=== PATIENT | female | born 1970 | race Caucasian/White ===

== ENCOUNTER 2018-08-08 11:15 | Emergency (ER) | payer OTHER ==
[2018-08-08 11:36] VITALS: BP 130/91
--- NOTE | 2018-08-08 11:50 | UC ---
Respiratory Complaint HPI - HPI Summary HPI Summary: 47 y/o female presents to the urgent care c/o sinus congestion w/ yellowish nasal discharge, body aches, PATRICIO since Wednesday08/05/2018. She states subjective denies fever, but had some chills last night. Body aches and PATRICIO is 8/10. Pt has taken Alkazeltser cold an flu to alleviate symptoms w/o any improvement. Last night she developed a productive cough that didn't allow her to sleep. PT denies SOB, wheezing, dizziness, abdominal pain, N/V/D. - History of Current Complaint Chief Complaint: UCRespiratory Stated Complaint: CONGESTION/COUGH Time Seen by Provider: 08/08/18 11:49 Hx Obtained From: Patient Hx Last Menstrual Period: 07/2018 ?: No Onset/Duration: Gradual Onset, Lasting Days - 3 ays, Still Present, Worse Since - todau Timing: Constant Severity Initially: Mild Severity Currently: Moderate Pain Intensity: 8 Pain Scale Used: 0-10 Numeric Character: Cough: Productive, Sputum Description: - yellowish Aggravating Factors: Recumbent Position Alleviating Factors: OTC Meds - alkazeltser cold and flu Associated Signs And Symptoms: Positive: Fever - subjective at home, Chills, URI , Nasal Congestion - Risk Factors Pulmonary Embolism Risk Factors: Negative Cardiac Risk Factors: Negative Pseudomonas Risk Factors: Negative Tuberculosis Risk Factors: Negative - Allergies/Home Medications Allergies/Adverse Reactions: Allergies Allergy/AdvReac Type Severity Reaction Status Date / Time No Known Allergies Allergy Verified 08/08/18 11:31 Home Medications: Home Medications Dm/PE/Acetaminophen/Chlorphenr [Gini-[place] Plus Cld-Cough Cp] 1 cap PO ONCE [History Confirmed 08/08/18] PMH/Surg Hx/FS Hx/Imm Hx Previously Healthy: Yes - Pt denies PMHX - Surgical History Surgical History: Yes Surgery Procedure, Year, and Place: Tubal Ligation, 2002, [facility] - Family History Known Family History: Positive: Hypertension - Social History Occupation: Employed Full-time Lives: With Family Alcohol Use: None Substance Use Type: None Smoking Status (MU): Former Smoker Type: Cigarettes Amount Used/How Often: 1/2 PPD Length of Time of Smoking/Using Tobacco: 29 Years Have You Smoked in the Last Year: Yes When Did the Patient Quit Smoking/Using Tobacco: 03/27/14 Review of Systems All Other Systems Reviewed And Are Negative: Yes Constitutional: Positive: Fever, Chills, Other - body aches Skin: Positive: Negative Eyes: Positive: Negative ENT: Positive: Sore Throat - mild, Nasal Discharge - yellowish, Sinus Congestion , Sinus Pain/Tenderness Respiratory: Positive: Cough - productive yellowish phlegm Cardiovascular: Positive: Negative Gastrointestinal: Positive: Negative Genitourinary: Positive: Negative Motor: Positive: Negative Neurovascular: Positive: Negative Musculoskeletal: Positive: Myalgia Neurological: Positive: Headache Psychological: Positive: Negative Is Patient Immunocompromised?: No Physical Exam - Summary Physical Exam Summary: Vital Signs Reviewed: Yes General: well developed, well nourished female sitting in the examining table w/ o any respiratory or pain apparent distress Eyes: Positive: Conjunctiva Clear - PERRLA, EOMI, fundi grossly normal ENT: Positive: Normal ENT inspection, Hearing grossly normal, Pharynx normal, Nasal congestion - edematous and erythematous nasal mucosa, Nasal drainage - yellowish drainage, TMs normal. Negative: Tonsillar swelling, Tonsillar exudate Neck: Positive: Supple, Nontender, No Lymphadenopathy Respiratory: no orthopnea or dyspnea. Able to speak in full sentences, no retractions or accessory muscle use, no tripod position, stridor, or head bobbing. Positive breath sounds bilaterally. No wheezing or rhonchi on b/L lungs, no crackles or rales. Cardiovascular: Positive: RRR, No Murmur, Pulses Normal, Brisk Capillary Refill Abdomen Description: Positive: Nontender, No Organomegaly, Soft. Negative: CVA Tenderness (R), CVA Tenderness (L) Bowel Sounds: Positive: Present Musculoskeletal Exam: Normal Musculoskeletal: Positive: Strength Intact, ROM Intact, No Edema Neurological Exam: Normal Psychological Exam: Normal Skin Exam: Normal Triage Information Reviewed: Yes Vital Signs: Initial Vital Signs Temp 98.1 F 08/08/18 11:32 Pulse 69 08/08/18 11:32 Resp 15 08/08/18 11:32 BP 130/91 08/08/18 11:32 Pulse Ox 100 08/08/18 11:32 UC Diagnostic Evaluation - Laboratory O2 Sat by Pulse Oximetry: 100 Respiratory Course/Dx - Course Course Of Treatment: 47 y/o female presents to the urgent care c/o sinus congestion w/ yellowish nasal discharge, body aches, PATRICIO since Wednesday08/05/2018. She states subjective denies fever, but had some chills last night. Body aches and PATRICIO is 8/10. Pt has taken Alkazeltser cold an flu to alleviate symptoms w/o any improvement. Last night she developed a productive cough that didn't allow her to sleep. PT denies SOB, wheezing, dizziness, abdominal pain, N/V/D. Hx obtained. Pt w/ URI on examination. Influenza A&B ordered: result: negative. Pt Rx ibuprofen PO to alleviates symptoms. Advised on hand washing. Pt advised to rest, increase fluid intake, eat well and avoid strenuous exercise. If symptoms do not improve or worsen advised to return to the urgent care or f/u with her PCP for further evaluation and treatment. Pt's BP is elevated today advised to decrease salt in diet, monitor BP and f/u with PCP for further management. Pt understood and agreed with plan of care. - Differential Dx/Diagnosis Differential Diagnosis/HQI/PQRI: Asthma, Bronchitis, Influenza, Laryngitis, Lower Resp Infection, Sinusitis Provider Diagnosis: Upper respiratory infection, acute, Elevated BP without diagnosis of hypertension Discharge - Sign-Out/Discharge Documenting (check all that apply): Patient Departure - D/C home All imaging exams completed and their final reports reviewed: No Studies - Discharge Plan Condition: Stable Disposition: HOME Prescriptions: Ibuprofen TAB* [Motrin TAB* 600 MG] 600 mg PO Q6H PRN #30 tab PRN Reason: Pain Patient Education Materials: Upper Respiratory Infection (ED), Low-Sodium Diet (ED) Forms: *Work Release Referrals: Loyda Holt MD [Primary Care Provider] - 3 Days Additional Instructions: 1- Influenza A&B is negative. 2-Please take ibuprofen PO q6-8hrs prn as instructed after meals to alleviate pain and swelling. Increase fluid intake, eat well, rest and avoid strenuous exercise 3-If symptoms do not improve or worsen please return to the urgent care or f/u with your PCP for further evaluation and treatment. 4- Your BP is elevated today. please decrease salt in your diet, monitor BP and if it continues to be elevated please f/u with your PCP for further management. - Billing Disposition and Condition Condition: STABLE Disposition: Home - Attestation Statements Provider Attestation: Per institutional requirements, I have reviewed the chart, however, I was not consulted specifically or made aware of this patient by the midlevel provider. I did not personally evaluate, interact with , or disposition this patient.
== END 2018-08-08 12:38 | disposition home or self-care (01) ==
LOC: UCCORT 11:15
DX: J06.9 Acute upper respiratory infection, unspecified (principal); R03.0 Elevated blood-pressure reading, without diagnosis of hypertension; Z87.891 Personal history of nicotine dependence
CPT/HCPCS: 99202; G0463

== ENCOUNTER 2018-11-29 13:13 | Emergency (ER) | payer OTHER ==
[2018-11-29 13:35] VITALS: BP 129/68
--- NOTE | 2018-11-29 13:41 | UC ---
Throat Pain/Nasal Jason HPI - HPI Summary HPI Summary: Pt c/o cough, nasal congestion, sinus pressure, pain, malaise, chills, X 5 days. Pt has been taking OTC medications with little to improvement of symptoms. - History of Current Complaint Chief Complaint: UCGeneralIllness Stated Complaint: SINUS CONCERN Time Seen by Provider: 11/29/18 13:35 Hx Obtained From: Patient Hx Last Menstrual Period: 10/2018 ?: No Onset/Duration: Gradual Onset, Lasting Days, Still Present, Worse Since - onset Severity: Moderate Pain Intensity: 8 Cough: Productive Associated Signs & Symptoms: Positive: Sinus Discomfort, Nasal Discharge - Epiglottits Risk Factors Epiglottis Risk Factors: Negative - Allergies/Home Medications Allergies/Adverse Reactions: Allergies Allergy/AdvReac Type Severity Reaction Status Date / Time No Known Allergies Allergy Verified 11/29/18 13:30 PMH/Surg Hx/FS Hx/Imm Hx Previously Healthy: Yes - Surgical History Surgical History: Yes Surgery Procedure, Year, and Place: Tubal Ligation, 2002, [facility] - Family History Known Family History: Positive: Hypertension - Social History Occupation: Employed Full-time Lives: With Family Alcohol Use: None Substance Use Type: None Smoking Status (MU): Former Smoker Type: Cigarettes Amount Used/How Often: 1/2 PPD Length of Time of Smoking/Using Tobacco: 29 Years Have You Smoked in the Last Year: No When Did the Patient Quit Smoking/Using Tobacco: 03/27/14 - Immunization History Vaccination Up to Date: No Review of Systems All Other Systems Reviewed And Are Negative: Yes Constitutional: Positive: Chills, Fatigue Skin: Positive: Negative Eyes: Positive: Negative ENT: Positive: Sinus Congestion, Sinus Pain/Tenderness Respiratory: Positive: Cough Cardiovascular: Positive: Negative Gastrointestinal: Positive: Negative Genitourinary: Positive: Negative Motor: Positive: Negative Neurovascular: Positive: Negative Musculoskeletal: Positive: Myalgia Neurological: Positive: Negative Psychological: Positive: Negative Is Patient Immunocompromised?: No Physical Exam Triage Information Reviewed: Yes Appearance: Ill-Appearing Vital Signs: Initial Vital Signs Temp 98.4 F 11/29/18 13:31 Pulse 62 11/29/18 13:31 Resp 17 11/29/18 13:31 BP 129/68 11/29/18 13:31 Pulse Ox 100 11/29/18 13:31 Vital Signs Reviewed: Yes Eye Exam: Normal ENT: Positive: Nasal congestion, Sinus tenderness Dental Exam: Normal Neck exam: Normal Respiratory: Positive: Wheezing Cardiovascular Exam: Normal Musculoskeletal Exam: Normal Neurological Exam: Normal Psychological Exam: Normal Skin Exam: Normal Throat Pain/Nasal Course/Dx - Differential Dx/Diagnosis Differential Diagnosis/HQI/PQRI: Influenza, Sinusitis, URI Provider Diagnosis: Sinusitis, Cough Discharge - Sign-Out/Discharge Documenting (check all that apply): Patient Departure All imaging exams completed and their final reports reviewed: No Studies - Discharge Plan Condition: Stable Disposition: HOME Prescriptions: Amoxicillin PO (*) [Amoxicillin 875 MG (*)] 875 mg PO Q12H #20 tab Benzonatate CAP* [Tessalon 100 MG CAP*] 200 mg PO Q8H PRN #30 cap PRN Reason: Cough Fluconazole 150 MG TAB* [Diflucan 150 MG TAB*] 150 mg PO ONCE #2 tablet predniSONE TAB* [Deltasone 10 MG TAB*] 30 mg PO DAILY #12 tab Patient Education Materials: Sinusitis (ED), Acute Cough (ED) Forms: *Work Release Referrals: [facility] [place] [facility] [Outside] - If Needed No Primary Care Phys,NOPCP [Primary Care Provider] - Additional Instructions: PLEASE ESTABLISH CARE WITH A PCP SOON POSSIBLE. - Billing Disposition and Condition Condition: STABLE Disposition: Home
== END 2018-11-29 13:51 | disposition home or self-care (01) ==
LOC: UCCORT 13:13
DX: J32.9 Chronic sinusitis, unspecified (principal); Z87.891 Personal history of nicotine dependence
CPT/HCPCS: 99212; G0463

== ENCOUNTER 2019-10-05 10:34 | Emergency (ER) | payer OTHER ==
--- OUTSIDE RECORDS SUMMARY | 2019-10-05 10:41 | XMS REPORT | Summary of Care ---
:1970 Author Organization [facility] Address [address] [place] [address] Care Team Providers Name Role Phone Loyda Holt MD Primary Care Provider Reason for Referral Consultation (Routine) Status Reason Specialty Diagnoses / Referred By Referred To Procedures Contact Contact Open Specialty Ophthalmology Diagnoses Overlap syndrome Rickie Crowley MD Services [address] [place] [address] Email: [email or web address] Consultation (Routine) Status Reason Specialty Diagnoses / Referred By Contact Referred To Procedures Contact Open Specialty Neurology Diagnoses Overlap syndrome Rickie Crowley MD Services Required [address] [place] [address] Email: [email or web address] Reason for Visit Reason Comments Follow-up Encounter Details Date Type Department Care Team Description 08/18/2019 Office Visit [facility] Rheumatology Rickie Crowley MD Overlap syndrome [facility] [address] (Primary Dx) [place] [address] [address] [phone] [place] [address] [phone] Allergies No Known Allergiesdocumented as of this encounter (statuses as of 08/18/2019) Medications Medication Sig Dispensed Refills Start Date End Date Status melatonin 3 MG tablet Take 3 mg by 0 Active mouth nightly cyclobenzaprine Take 5 mg by 0 Active (FLEXERIL) 5 MG tablet mouth as needed for Muscle spasms Hydroxychloroquine Take 1 tablet 60 tablet 11 05/26/2019 05/25/2020 Active Sulfate 200 MG Oral by mouth Two Tablet (PLAQUENIL) Times Daily documented as of this encounter (statuses as of 08/18/2019) Active Problems Problem Noted Date Overlap syndrome 05/26/2019 Abnormal finding on radiological examination of breast 03/23/2019 Family history of breast cancer 03/23/2019 documented as of this encounter (statuses as of 08/18/2019) Social History Tobacco Use Types Packs/Day Years Used Date Former Smoker Cigarettes Quit: 2012 Smokeless Tobacco: Never Used Tobacco Cessation: Counseling Given: No Alcohol Use Drinks/Week oz/Week Comments Never Alcohol Habits Answer Date Recorded How often do you have a drink containing alcohol? Never 03/23/2019 How many drinks containing alcohol do you have on a typical Not asked day when you are drinking? How often do you have six or more drinks on one occasion? Not asked Sex Assigned at Date Recorded Not on file Job Start Date Occupation Industry Not on file Not on file Not on file Travel History Travel Start Travel End No recent travel history available. documented as of this encounter Last Filed Vital Signs Vital Sign Reading Time Taken Comments Blood Pressure 131/88 08/18/2019 3:54 PM EST Pulse 69 08/18/2019 3:54 PM EST Temperature 36.4 08/18/2019 3:54 PM EST C (97.6 F) Respiratory Rate 16 08/18/2019 3:54 PM EST Oxygen Saturation 97% 08/18/2019 3:54 PM EST Inhaled Oxygen Concentration - - Weight 53.1 kg (117 lb) 08/18/2019 3:54 PM EST Height 165.1 cm (5' 5") 08/18/2019 3:54 PM EST Body Mass Index 19.47 08/18/2019 3:54 PM EST documented in this encounter Progress Notes Rickie Crowley MD - 08/18/2019 3:45 PM EST Subjective: Patient ID: Nicolas Garcia is a 48 y.o. female. HPI This is a 48-year-old white female, with, positive ANDREW, cervical cancer, status post surgery in 1995, kidney stones, scoliosis came in for follow up. I first time saw her on 04/20/2019 at which time shewas referred by primary doctor for positive antinuclear antibody test. The patient has been living in [place] a few years, gradually felt generalized weakness, fatigue, back pain, hip pain, whole bodyhurts. She did have rashes on both hands and feet and toes. It comes and goes, currently only on right hand. She does have Raynaud phenomena, headache, dry mouth, dry eyes, 1 miscarriage, 3 children, and hair is thinning out, but no oral ulcers or chest pain. She saw her primary doctor in January 2019. At that time, ANDREW positive, but Lyme, CCP, ESR were negative. Western blot Lyme IgM P23 positive. Rest of the Western blot was negative. Her primary doctor did prescribe Flexeril, but she does not notice any benefit. She has insomnia, but no depression or anxiety. On 05/26/2019, the patient came in for follow up. I reviewed labs with her. RF 22. C3 84, ANDREW homo 250 and nucleoar 250. 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 Recommended hydroxychloroquine 200mg bid. Need yearly color receiver exam to monitor retinal toxicity. Side effect explained. On 08/18/2019, the patient came in for follow up. Dictation on: 08/18/2019 4:38 PM by: RICKIE CROWLEY[[id number]] Review of Systems Per HPI. Review of complete ROS is negative. Past Medical History: Diagnosis Date Cervical cancer 1995 Colitis Headache IBS (irritable bowel syndrome) Lupus Past Surgical History: Procedure Laterality Date CERVICAL BIOPSY W/ LOOP ELECTRODE EXCISION 1995 COLONOSCOPY 2011 TUBAL LIGATION 2002 Family History Problem Relation Age of Onset No Known Problems Mother Cancer Father 65 Prostate No Known Problems Brother Heart attack Maternal Grandmother Stroke Maternal Grandmother Heart attack Maternal Grandfather Alcohol abuse Maternal Grandfather No Known Problems Son No Known Problems Daughter No Known Problems Daughter Cancer Maternal Aunt 40 Breast Social History Tobacco Use Smoking status: Former Smoker Types: Cigarettes Last attempt to quit: 2013 Years since quittin.0 Smokeless tobacco: Never Used Substance Use Topics Alcohol use: Never Frequency: Never Drug use: Never Patient has no known allergies. Current Outpatient Medications Medication Sig Dispense Refill cyclobenzaprine (FLEXERIL) 5 MG tablet Take 5 mg by mouth as needed for Muscle spasms Hydroxychloroquine Sulfate 200 MG Oral Tablet (PLAQUENIL) Take 1 tablet by mouth Two Times Daily 60 tablet 11 melatonin 3 MG tablet Take 3 mg by mouth nightly No current facility-administered medications for this visit. Objective: Physical Exam Visit Vitals BP 131/88 Pulse 69 Temp 36.4 C (97.6 F) (Tympanic) Resp 16 Ht 1.651 m (5' 5") Wt 53.1 kg (117 lb) SpO2 97% BMI 19.47 kg/m HEENT: no facial erythema, hearing grossly intact. Chest exam: clear to auscultation, no wheezing orcrackles. Good airway entry. Heart exam: regular rate and rhythm, S1, S2 present, no murmur, rub, gallop. Extremities no cyanosis , clubbing or edema. Neuro exam: AAO*3, no focal deficits. Skin exam: Nopsoriasis or vasculitis skin rash. Joint exam: No active synovitis in both upper and lower extremityjoints except left elbow diffused tenderness. Normal gait and stance. Data reviewed: I personally reviewed old chart, labs in [facility], note and other clinical date from her PCP office. Labs done 02/13/2019 CCP 3, ESR 18, Lyme negative except IgM P23 positive. ANDREW homo 1:160 Office Visit on 04/20/2019 Component Date Value Ref Range Status Albumin 04/20/2019 4.4 3.5 - 5.2 g/dL Final Bilirubin, Total 04/20/2019 0.4 <1.2 mg/dL Final Calcium 04/20/2019 9.1 8.6 - 10.0 mg/dL Final Chloride 04/20/2019 105 98 - 107 mmol/L Final Creatinine 04/20/2019 0.68 0.50 - 0.90 mg/dL Final Glucose 04/20/2019 88 70 - 140 mg/dL Final Alkaline Phosphatase 04/20/2019 73 35 - 104 U/L Final Potassium 04/20/2019 4.0 3.4 - 5.1 mmol/L Final Total Protein 04/20/2019 7.0 6.4 - 8.3 g/dL Final Sodium 04/20/2019 136 136 - 145 mmol/L Final AST/SGO 04/20/2019 21 <32 U/L Final Blood Urea Nitrogen 04/20/2019 19 6 - 20 mg/dL Final Osmolality, Kwasi 04/20/2019 284 275 - 300 mosm/kg Final BUN/Cre Ratio 04/20/2019 28 Final Bicarbonate 04/20/2019 22 22 - 29 mmol/L Final ALT/SGP 04/20/2019 14 <33 U/L Final Anion Gap 04/20/2019 9 8 - 15 mmol/L Final A/G Ratio 04/20/2019 1.7 Final GFR Non 2008 CDK-* 04/20/2019 >90 >60 mL/min/ 1.73m2 Final GFR 2008 CKD-EPI 04/20/2019 >90 >60 mL/min/ 1.73m2 Final White Blood Cell 04/20/2019 5.8 4 - 10 10*3/uL Final Red Blood Cell 04/20/2019 4.40 4.1 - 5.3 10*6/uL Final Hemoglobin 04/20/2019 13.9 11.5 - 15.5 g/dL Final Hematocrit 04/20/2019 42.1 36 - 45 % Final Mean Cell Volume 04/20/2019 95.6 80 - 96 fL Final Mean Cell Hemoglobin 04/20/2019 31.5 27 - 33 pg Final Mean Cell Hgb Conc 04/20/2019 33.0 32.0 - 36.0 g/dL Final Red Cell Dist Width 04/20/2019 12.9 11.5 - 14.5 % Final Platelet Count 04/20/2019 262 150 - 400 10*3/uL Final Differential Type 04/20/2019 Automated Diff Final Neutrophil 04/20/2019 51 % Final Lymphocyte 04/20/2019 40 % Final Monocyte 04/20/2019 7 % Final Eosinophil 04/20/2019 1 % Final Basophil 04/20/2019 1 % Final Abs Neutrophil 04/20/2019 2.96 1.8 - 7.0 10*3/uL Final Abs Lymphocyte 04/20/2019 2.32 1.2 - 4.0 10*3/uL Final Abs Monocyte 04/20/2019 0.40 0 - 0.8 10*3/uL Final Abs Eosinophil 04/20/2019 0.05 0 - 0.5 10*3/uL Final Abs Basophil 04/20/2019 0.03 0 - 0.2 10*3/uL Final Nucleated Red Blood Cells 04/20/2019 0 0 - 0 /100 Final C4 - Complement 04/20/2019 17 10 - 40 mg/dL Final C3 - Complement 04/20/2019 84* 90 - 180 mg/dL Final TSH 04/20/2019 0.359 0.270 - 4.200 u[IU]/mL Final Rheumatoid factor 04/20/2019 22* <14 IU/ml Final SSA Autoantibody 04/20/2019 10 0 - 99 [AU]/mL Final SSB Autoantibody 04/20/2019 8 0 - 99 [AU]/mL Final Marvin Autoantibody 04/20/2019 17 0 - 99 [AU]/mL Final INFERTILITY MEDICAL ASSISTANT Autoantibody 04/20/2019 89 0 - 99 U/ML Final SCL-70 Autoantibody 04/20/2019 55 0 - 99 [AU]/mL Final WAQAS-1 Autoantibody 04/20/2019 10 0 - 99 [AU]/mL Final Double Stranded DNA Ab 04/20/2019 20 0 - 99 [IU]/mL Final Centromere antibody 04/20/2019 10 0 - 99 [AU]/mL Final Histone antibody 04/20/2019 36 0 - 99 [AU]/mL Final Homogeneous Pattern 04/20/2019 250* 0 - 49 1/dil Final Speckled Pattern 04/20/2019 <50 0 - 49 1/dil Final Peripheral Pattern 04/20/2019 <50 0 - 49 1/dil Final ANDREW,Nucleolar pattern 04/20/2019 250* 0 - 49 1/dil Final Assessment: 1. Positive ANDREW, fatigue, arthralgia, headache, dry mouth, dry eyes, Raynaud's. 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 2. History of kidney stones. 3. Scoliosis. 4. IBS. 5. Cervical cancer. 6. Left side pain and weakness. 7. Blurry vision. Plan: - Nicolas was seen today for follow-up. Diagnoses and all orders for this visit: Overlap syndrome - ANDREW; Future - ANDREW Specificity; Future - C3 complement; Future - Rheumatoid factor; Future - Sedimentation rate, automated; Future - Referral to Neurology - Referral to Ophthalmology - Sedimentation rate, automated - Rheumatoid factor - C3 complement - ANDREW Specificity - ANDREW - repeat serology. - hold off hydroxychloroquine 200mg bid for one month. Need yearly color receiver exam to monitor retinal toxicity. Side effect explained. - referral to color receiver. - referral to neurology for left side EMGNCS. - offered left elbow steroid injection but she deferred. - Activities as tolerated. - Diet: Paleo diet ( no sugar, no diary, low carb diet) , more greens/vegetables , adequate hydration. - Encouraged to maintain good sleep hygiene. - Continue other medications as prescribed by PCP and other specialist. - RV in 6 months; above findings, analysis and plan were all discussed with the patient and questions were answered as much as possible. documented in this encounter Plan of Treatment Date Type Specialty Care Team Description 12/01/2019 Office Visit Rheumatology Rickie Crowley MD [address] [address] [phone] 02/16/2020 Office Visit Rheumatology Rickie Crowley MD [address] [address] [phone] Name Type Priority Associated Diagnoses Order Schedule ANDREW Lab Routine Overlap syndrome 1 Occurrences starting 08/18/2019 until 02/18/2020 ANDREW Specificity Lab Routine Overlap syndrome 1 Occurrences starting 08/18/2019 until 02/18/2020 C3 complement Lab Routine Overlap syndrome 1 Occurrences starting 08/18/2019 until 02/18/2020 Rheumatoid factor Lab Routine Overlap syndrome 1 Occurrences starting 08/18/2019 until 02/18/2020 Sedimentation rate, Lab Routine Overlap syndrome 1 Occurrences starting automated 08/18/2019 until 02/18/2020 Name Type Priority Associated Order Schedule Diagnoses Referral to Neurology Outpatient Referral Routine Overlap syndrome Ordered: 08/18/2019 Referral to Outpatient Referral Routine Overlap syndrome Ordered: Ophthalmology 08/18/2019 Health Maintenance Due Date Last Done Comments MMR Vaccines (1 of 1 - Standard 1970 series) Varicella Vaccines (1 of 2 - 1970 2-dose childhood series) DTaP,Tdap,and Td Vaccines (1 - 1976 Tdap) HIV Screening 1982 Cervical Cancer Screening 5 years 1990 Influenza Vaccine 04/18/2019 Pneumococcal Vaccine: 65+ Years (1 2034 of 2 - PCV13) HIB Vaccines Aged Out No longer eligible based on patient's age to complete this topic Hepatitis A Vaccines Aged Out No longer eligible based on patient's age to complete this topic Hepatitis B Vaccines Aged Out No longer eligible based on patient's age to complete this topic IPV Vaccines Aged Out No longer eligible based on patient's age to complete this topic Pneumococcal Vaccine: Pediatrics Aged Out No longer eligible based on (0 to 5 Years) and At-Risk patient's age to complete this Patients (6 to 64 Years) topic documented as of this encounter Results Not on filedocumented in this encounter Visit Diagnoses Diagnosis Overlap syndrome - Primary Other specified diffuse disease of connective tissue documented in this encounter
[2019-10-05 11:31] VITALS: BP 100/67
[2019-10-05 12:30] LABS: Influenza A Molecular Negative (Negative); Influenza B Molecular Negative (Negative)
--- NOTE | 2019-10-05 12:46 | UC ---
FLU HPI - HPI Summary HPI Summary: 49-year-old female comes in with influenza-like symptoms. Started yesterday with sinus pressure headache chills bodyaches sore throat. Hurts more when she swallows. Has generalized body aches. No recent travel. Patient does have lupus and is potentially immunocompromised. - History of Current Complaint Chief Complaint: UCRespiratory Stated Complaint: ST/PATRICIO/BA Time Seen by Provider: 10/05/19 11:35 Hx Last Menstrual Period: "August" Pain Intensity: 10 - Allergy/Home Medications Allergies/Adverse Reactions: Allergies Allergy/AdvReac Type Severity Reaction Status Date / Time No Known Allergies Allergy Verified 10/05/19 11:24 Home Medications: Home Medications Amoxicillin PO (*) [Amoxicillin 875 MG (*)] 875 mg PO BID #20 tab 10/05/19 [Rx] Hydroxychloroquine TAB* [Plaquenil TAB*] 200 mg PO BID 10/05/19 [History Confirmed 10/05/19] Miconazole VAG.SUPP* [Monistat7*] 100 mg VAGINAL BEDTIME #7 vag.supp 10/05/19 [ Rx] PMH/Surg Hx/FS Hx/Imm Hx Previously Healthy: Yes - LUPUS - Surgical History Surgical History: Yes Surgery Procedure, Year, and Place: Tubal Ligation, 2002, [facility] - Family History Known Family History: Positive: Hypertension - Social History Alcohol Use: None Substance Use Type: None Smoking Status (MU): Former Smoker Type: Cigarettes Amount Used/How Often: 1/2 PPD Length of Time of Smoking/Using Tobacco: 1/2 PPD x 29 Years Have You Smoked in the Last Year: No When Did the Patient Quit Smoking/Using Tobacco: 2013 - Immunization History Vaccination Up to Date: No Review of Systems All Other Systems Reviewed And Are Negative: Yes Constitutional: Positive: Other - SEE HPI Skin: Positive: Negative Eyes: Positive: Negative ENT: Positive: Sore Throat, Nasal Discharge, Sinus Congestion, Sinus Pain/ Tenderness Respiratory: Positive: Cough Cardiovascular: Positive: Negative Gastrointestinal: Positive: Negative Motor: Positive: Negative Neurovascular: Positive: Negative Musculoskeletal: Positive: Myalgia Neurological/Mental Status: Positive: Headache Psychological: Positive: Negative Is Patient Immunocompromised?: No Physical Exam Triage Information Reviewed: Yes Appearance: Well-Nourished, Ill-Appearing - MILD Vital Signs: Initial Vital Signs Temp 98.3 F 10/05/19 11:21 Pulse 66 10/05/19 11:21 Resp 18 10/05/19 11:21 BP 100/67 10/05/19 11:21 Pulse Ox 100 10/05/19 11:21 Vital Signs Reviewed: Yes Eye Exam: Normal Eyes: Positive: Conjunctiva Clear ENT: Positive: Pharyngeal erythema, Nasal congestion, Nasal drainage Neck: Positive: Supple Respiratory: Positive: No respiratory distress Musculoskeletal: Positive: Strength Intact, ROM Intact Neurological: Positive: Alert Psychological: Positive: Age Appropriate Behavior Skin Exam: Normal Flu Course/Dx - Course Course Of Treatment: DISCUSSED VIRAL VERSES BACTERIAL INFECTIONS AND THE ROLE OF ANTIBIOTICS. THE PATIENT PREFERS TO BE ON ANTIBIOTICS AT THIS TIME. Covid 19 sample drawn here, strep and flu were negative. Patient's neck was supple. Patient treat symptomatically. Pasty reevaluated if not improving go to the emergency department if worse. - Differential Dx/Diagnosis Provider Diagnosis: Influenza-like illness, Sinusitis Discharge ED - Sign-Out/Discharge Documenting (check all that apply): Patient Departure All imaging exams completed and their final reports reviewed: No Studies - Discharge Plan Condition: Stable Disposition: HOME Prescriptions: Amoxicillin PO (*) [Amoxicillin 875 MG (*)] 875 mg PO BID #20 tab Miconazole VAG.SUPP* [Monistat7*] 100 mg VAGINAL BEDTIME #7 vag.supp Patient Education Materials: Sinusitis (ED), Viral Syndrome (ED) Forms: *Work Release Referrals: [facility] [place] PHYSICIAN REFERRAL [Outside] Additional Instructions: MAINTAIN AT HOME ISOLATION. FOLLOW UP WITH YOUR DOCTOR IF NOT COMPLETELY IMPROVED. GO TO THE EMERGENCY DEPARTMENT IF WORSE OR ANY QUESTIONS OR CONCERNS. - Billing Disposition and Condition Condition: STABLE Disposition: Home
[2019-10-05] MEDS ORDERED: Acetaminophen TAB* 325 MG PO ONE (12:47)
== END 2019-10-05 13:06 | disposition home or self-care (01) ==
LOC: UCCORT 10:34
DX: J11.1 Influenza due to unidentified influenza virus with other respiratory manifestations (principal); J32.9 Chronic sinusitis, unspecified; M32.9 Systemic lupus erythematosus, unspecified; Z87.891 Personal history of nicotine dependence
CPT/HCPCS: 87651; 99212; A9270-GY; G0463; U0002